=== PATIENT | male | born 1975 | race Two or more races ===

== ENCOUNTER 2017-11-20 10:29 | Inpatient (IN) | payer OTHER ==
[2017-11-16 12:31] VITALS: BMI 39.3
[2017-11-20] MEDS ORDERED: BUPIVACAINE HCL/PF 0.5% (5MG/ML) 10 ML VIAL ONE (11:06)
[2017-11-20] MEDS ORDERED: ROPIVACAINE HCL 0.5% 30ML VIAL ONE (12:08)
[2017-11-20] MEDS ORDERED: MIDAZOLAM HCL 2 MG/2 ML SINGLE DOSE VIAL ONE ×2 (12:09)
--- NOTE | 2017-11-20 12:17 | HP ---
Admitting History and Physical - Admission Chief Complaint: Morbid Obesity History Source: Patient Limitations to Obtaining History: No Limitations - Past Medical History Pulmonary: Yes: Sleep Apnea Gastrointestinal: Yes: Other (Morbid obesity) - Past Surgical History Additional Past Surgical History: Right knee surgery - Smoking History Smoking history: Never smoked Have you smoked in the past 12 months: No - Alcohol/Substance Use Hx Alcohol Use: Yes (rare) Home Medications - Allergies Allergies/Adverse Reactions: Allergies Allergy/AdvReac Type Severity Reaction Status Date / Time No Known Allergies Allergy Verified 11/20/17 11:07 - Home Medications Home Medications: Ambulatory Orders Ibuprofen 600 mg PO PRN PRN 11/16/17 Famotidine [Pepcid] 20 mg PO BID #60 tablet 11/20/17 Oxycodone HCl/Acetaminophen [Percocet 5-325 mg Tablet] 1 - 2 tab PO Q6H #28 tab MDD 4 11/20/17 Family Disease History - Family Disease History Family History: Unremarkable Review of Systems - Review of Systems Constitutional: denies: Chills, Fever Neck: reports: No Symptoms Cardiovascular: reports: No Symptoms Gastrointestinal: reports: No Symptoms Neurological: reports: No Symptoms Pain Intensity: 0 Physical Examination Vital Signs: Vital Signs Temperature 98.5 F 11/20/17 11:08 Pulse Rate 91 H 11/20/17 11:08 Respiratory Rate 18 11/20/17 11:08 Blood Pressure 124/73 11/20/17 11:08 O2 Sat by Pulse Oximetry (%) 94 L 11/20/17 11:11 Constitutional: Yes: Calm HENT: Yes: WNL Neck: Yes: WNL Cardiovascular: Yes: WNL Respiratory: Yes: WNL Gastrointestinal: Yes: Soft, Abdomen, Obese Neurological: Yes: Alert, Oriented Problem List - Problems (1) Morbid obesity due to excess calories Code(s): E66.01 - MORBID (SEVERE) OBESITY DUE TO EXCESS CALORIES (2) Sleep apnea Code(s): G47.30 - SLEEP APNEA, UNSPECIFIED Qualifiers: Sleep apnea type: unspecified type Qualified Code(s): G47.30 - Sleep apnea , unspecified (3) BMI 39.0-39.9,adult Code(s): Z68.39 - BODY MASS INDEX (BMI) 39.0-39.9, ADULT Assessment/Plan Laparoscopic possible open vertical sleeve gastrectomy, possible liver biopsy, EGD
[2017-11-20] MEDS ORDERED: ROCURONIUM BROMIDE 50 MG/5 ML VIAL ONE ×2 (12:41)
[2017-11-20] MEDS ORDERED: ceFAZolin SODIUM 1 GM VIAL ONE (12:41)
[2017-11-20] MEDS ORDERED: fentaNYL CITRATE 250 MCG/5 ML VIAL ONE (12:41)
[2017-11-20] MEDS ORDERED: PROPOFOL 20 ML ONE ×2 (12:41)
[2017-11-20] MEDS ORDERED: ceFAZolin SODIUM 1 GM VIAL IVPB ONE (12:59)
[2017-11-20] MEDS ORDERED: DEXAMETHASONE SOD PHOSPHATE 4 MG/1 ML VIAL ONE (13:15)
[2017-11-20] MEDS ORDERED: NEOSTIGMINE METHYLSULFATE 0.5 MG/ML - 10 ML MDV ONE (13:15)
[2017-11-20] MEDS ORDERED: GLYCOPYRROLATE 0.2 MG/1 ML VIAL ONE (13:15)
[2017-11-20] MEDS ORDERED: ePHEDrine SULFATE 50 MG/1 ML AMPULE ONE (13:31)
[2017-11-20] MEDS ORDERED: BUPIVACAINE HCL/PF 0.5% (5MG/ML) 10 ML VIAL IJ ONE (14:12)
--- NOTE | 2017-11-20 14:24 | OP ---
Operative Note - Note: Operative Date: 11/20/17 Pre-Operative Diagnosis: Morbid obesity. Sleep apnea Operation: Laparoscopic vertical sleeve gastrectomy, EGD Post-Operative Diagnosis: Same as Pre-op Surgeon: Beltran Browne Lever Operator: Kate Ramirez Anesthesia: General Specimens Removed: Greater curvature of stomach Estimated Blood Loss (mls): 30 Drains & Tubes with Location: 36 Fr bougie Operative Report Dictated: Yes
[2017-11-20] MEDS ORDERED: ONDANSETRON 4 MG/2 ML VIAL IVPUSH PRN (14:48)
[2017-11-20] MEDS ORDERED: IBUPROFEN 800 MG/8 ML IJ IVPB PRN (14:49)
[2017-11-20] MEDS ORDERED: IBUPROFEN 800 MG/8 ML IJ IVPB ONE (14:56)
[2017-11-20] MEDS ORDERED: LACTATED RINGERS SOLUTION 1,000 ML IV SCH (15:00)
--- NOTE | 2017-11-20 15:08 | SPEC ---
DATE OF OPERATION: 11/20/2017 SURGEON: Beltran Browne MD ICICLE MACHINE OPERATOR: YONIS Winchester PREOPERATIVE DIAGNOSES: 1. Morbid obesity. 2. Sleep apnea. 3. A body mass index of 39.3. POSTOPERATIVE DIAGNOSES: 1. Morbid obesity. 2. Sleep apnea. 3. A body mass index of 39.3. PROCEDURE: 1. Laparoscopic vertical sleeve gastrectomy. 2. Upper endoscopy/esophagogastroduodenoscopy. SPECIMEN: Greater curvature of the stomach. ESTIMATED BLOOD LOSS: 30 mL DRAINS: None. ANESTHESIA: GET. BOUGIE: Size 36-Armenian. REASON FOR PROCEDURE: This is a 42-year-old gentleman who presented for weight loss options. After describing different options, he decided to proceed with a laparoscopic, possible open vertical sleeve gastrectomy. RISKS AND BENEFITS: After describing the different options for weight loss management, the patient decided to proceed with a laparoscopic, possible open vertical sleeve gastrectomy. The patient was seen by the respective subspecialties and cleared for surgery. The risks and benefits of the procedure were explained. These included bleeding, infection, hernia, OH, DVT, PE, injury to surrounding structures including the liver, colon, bowel, spleen, esophagus, vessel injury, nerve injury, weight regain, gastric leak, staple line leak, sleeve leak, obstruction, vitamin deficiency, hair loss, and as some of the possible complications. The patient understood and signed informed consent. DESCRIPTION OF PROCEDURE: The patient was placed supine on the operating room table. The patient underwent general endotracheal intubation. A Fink catheter was inserted. The arms were brought out at 90 degrees and secured. A foot board was placed, and the legs were secured laterally with padding. The abdomen was prepped and draped in the usual sterile fashion. A timeout was performed. An incision was made in the left upper quadrant, and a Veress needle inserted. Pneumoperitoneum was established. Subsequently, the Veress needle was removed, and a 12-mm trocar was placed. The laparoscopic camera was inserted, and inspection of the abdominal cavity was performed. An incision was made in the supraumbilical region, and a 15-mm trocar placed under direct visualization. A 5-mm trocar was then placed in the right upper quadrant, and a 5-mm trocar placed below the left subcostal margin. A stab wound was made in the subxiphoid area, and a Jaylin clamp inserted and removed to dilate the tract. A Kristofer liver retractor was inserted. The post was secured at the bedside by the nursing staff. The patient was placed in steep reverse Trendelenburg position. The Kristofer liver retractor was used to secure the liver towards the anterior abdominal wall. The pylorus was identified and 6 cm proximal to it, the lesser sac was entered using the Ligasure device. All lateral attachments to the greater curvature of the stomach including the short gastric vessels were ligated using the Ligasure device toward the gastrosplenic and gastrophrenic ligaments. Once this was done in its entirety, it was confirmed that all tubes within the nasal or oropharyngeal cavity including a temperature probe was removed by Anesthesia. The bougie was then inserted by Anesthesia. Transection of the stomach was then begun staying adjacent to the bougie but away from the angularis. Transection of the stomach was performed near the portion of the stomach where the lesser sac was entered. Two laparoscopic Endo-JERRELL black loads were used at this location. Laparoscopic Endo-JERRELL purple loads were then used for the remainder of the transection until the greater curvature of the stomach was fully transected. This was done staying close to the bougie. Care was taken to stay away from the angle of His cephalad. The staple line was then inspected. Hemostasis was identified. A leak test was then performed. The stomach was clamped distally to the staple line. Irrigation solution was placed in the left upper quadrant, and air insufflated by Anesthesia into the sleeve. No leaks were identified, and no obstruction was identified. This was done throughout the entirety of the staple line. At this point, the irrigation solution was suctioned, and again hemostasis noted. The 15-mm supraumbilical trocar was then removed, and the specimen removed from the site using a sponge stick guido. The specimen was inspected, and a Veress needle inserted. The specimen insufflated adequately, and no leak was identified. The staple line was noted to be intact. A Jason Sudarshan device was then used to temporarily close the fascia with a 0 Vicryl suture at this site. The 15-mm trocar was then reinserted, and the 12-mm trocar in the left upper quadrant removed. The fascia at this site was then closed using a Jason Sudarshan device with a 0 Vicryl suture. Again, hemostasis was noted. The Kristofer liver retractor was then removed under direct visualization. Pneumoperitoneum was desufflated, and the fascial sutures were secured. Hemostasis was noted at all incision sites, and Marcaine was injected at all incision sites. All incision sites were closed using 4-0 Biosyn. Sterile dressings were applied. The patient tolerated the procedure well, and was transferred to the recovery room in stable condition with the Fink catheter intact. The patient was transferred to telemetry for further monitoring. In addition, upper endoscopy was performed at the end. The endoscope was placed into the patient's mouth, esophagus, gastric pouch, and the staple line. The staple line was inspected. Hemostasis was noted, and there was no leak or obstruction noted. The endoscope was used to suction the stomach and removed from the patient's mouth. Patient tolerated the procedure well and transferred to recovery room in stable condition. Darius HERNANDEZ/[id number]
[2017-11-20 15:14] LABS: HEMATOCRIT 38.8 % (35.4-49); HEMOGLOBIN 13.3 GM/dL (11.7-16.9); MCHC 34.2 g/dl (32.0-35.9); MEAN CELL VOLUME 87.8 fl (80-96); MEAN PLT VOLUME 9.9 fl (7.5-11.1); PLATELET COUNT 236 K/MM3 (134-434); RBC 4.41 M/mm3 (4.00-5.60); RDW 13.4 % (11.9-15.9); WHITE BLOOD COUNT 19.6 K/mm3 (4.0-10.0)
[2017-11-20] MEDS: METOCLOPRAMIDE HCL INJECTION 10 MG/2 ML VIAL IVPUSH SCH ×2 (15:15→21:23)
[2017-11-20] MEDS: ACETAMINOPHEN 1000 MG/100 ML VIAL (NON FORMULARY) IVPB SCH ×2 (15:15→21:44)
[2017-11-20] MEDS: ONDANSETRON 4 MG/2 ML VIAL IVPUSH SCH ×3 (15:30→21:44)
[2017-11-20 15:35] LABS: ALBUMIN 3.5 g/dl (3.4-5.0); ALK PHOS 57 U/L (45-117); ANION GAP 6 (8-16); BILIRUBIN,TOTAL 0.3 mg/dL (0.2-1.0); BLOOD UREA NITROGEN 13 mg/dL (7-18); CALCIUM 8.2 mg/dL (8.5-10.1); CHLORIDE 108 mmol/L (98-107); CO2 27 mmol/L (21-32); GLUCOSE,RANDOM 128 mg/dL (74-106); POTASSIUM 3.8 mmol/L (3.5-5.1); SGOT/AST 60 U/L (15-37); SGPT/ALT 91 U/L (12-78); SODIUM 141 mmol/L (136-145); TOT PROT 7.5 g/dl (6.4-8.2)
[2017-11-20] MEDS: morphine SULFATE 4 MG/ML VIAL IVPUSH PRN ×2 (17:52→21:45)
[2017-11-20] MEDS: SODIUM CHLORIDE 1,000 ML IV SCH (17:53)
--- NOTE | 2017-11-20 19:24 | SURG ---
Surgery Tire And L[employer] Technician Note Tire And Lube Technician: Kate Ramirez PA-C Date of Service: 11/20/17 Diagnosis: morbid obesity, sleep apnea Procedure: Laparoscopic vertical sleeve gastrectomy, EGD I was present for the entirety of the operative procedure. For further detail, please refer to operative report. Visit type - Case Type Case Type: Scheduled Admission - Emergency Emergency Visit: No - New patient This patient is new to me today: Yes Date on this admission: 11/20/17
[2017-11-20] MEDS: ENOXAPARIN NA (PORCINE) 40 MG/0.4 ML DISP.SYRIN SQ SCH (21:23)
[2017-11-20] MEDS: FAMOTIDINE 20 MG/50 ML IVPB 20 MG/50 ML MG IVPB SCH (21:23)
[2017-11-21] MEDS: morphine SULFATE 4 MG/ML VIAL IVPUSH PRN ×2 (01:44→07:03)
[2017-11-21] MEDS: ACETAMINOPHEN 1000 MG/100 ML VIAL (NON FORMULARY) IVPB SCH ×2 (03:22→10:13)
[2017-11-21] MEDS: METOCLOPRAMIDE HCL INJECTION 10 MG/2 ML VIAL IVPUSH SCH ×3 (03:25→15:48)
[2017-11-21] MEDS: ONDANSETRON 4 MG/2 ML VIAL IVPUSH SCH ×4 (03:25→15:47)
[2017-11-21 08:02] VITALS: PULSE 98
[2017-11-21 09:07] LABS: HEMATOCRIT 37.3 % (35.4-49); HEMOGLOBIN 12.7 GM/dL (11.7-16.9); MCH 29.9 pg (25.7-33.7); MEAN CELL VOLUME 87.9 fl (80-96); MEAN PLT VOLUME 10.4 fl (7.5-11.1); PLATELET COUNT 196 K/MM3 (134-434); RBC 4.24 M/mm3 (4.00-5.60); RDW 13.5 % (11.9-15.9); WHITE BLOOD COUNT 15.8 K/mm3 (4.0-10.0)
[2017-11-21 10:16] LABS: CHLORIDE 106 mmol/L (98-107); POTASSIUM 4.1 mmol/L (3.5-5.1); SODIUM 140 mmol/L (136-145)
[2017-11-21] MEDS: SODIUM CHLORIDE 1,000 ML IV SCH (10:25)
[2017-11-21 10:55] LABS: ALBUMIN 3.6 g/dl (3.4-5.0); ALK PHOS 54 U/L (45-117); ANION GAP 10 (8-16); BILIRUBIN,TOTAL 0.6 mg/dL (0.2-1.0); BLOOD UREA NITROGEN 12 mg/dL (7-18); CALCIUM 8.1 mg/dL (8.5-10.1); CO2 24 mmol/L (21-32); CREATININE 0.8 mg/dL (0.7-1.3); GLUCOSE,RANDOM 108 mg/dL (74-106); SGOT/AST 50 U/L (15-37); SGPT/ALT 83 U/L (12-78); TOT PROT 7.2 g/dl (6.4-8.2)
[2017-11-21] MEDS: ENOXAPARIN NA (PORCINE) 40 MG/0.4 ML DISP.SYRIN SQ SCH (11:24)
[2017-11-21] MEDS: FAMOTIDINE 20 MG/50 ML IVPB 20 MG/50 ML MG IVPB SCH (11:28)
[2017-11-21] MEDS ORDERED: oxyCODONE HCL 5 MG TABLET PO PRN (12:37)
--- NOTE | 2017-11-21 12:43 | PN ---
Progress Note (short form) - Note Progress Note: POD 1 Pain controlled No nausea Vital Signs Period Temp Pulse Resp BP Sys/Noland Pulse Ox Last 24 Hr 97.2 F-98.8 F 81-108 12-25 109-158/73-99 94-96 Abd soft CBC,CMP WBC 15.8 K/mm3 (4.0-10.0) H 11/21/17 06:30 RBC 4.24 M/mm3 (4.00-5.60) 11/21/17 06:30 Hgb 12.7 GM/dL (11.7-16.9) 11/21/17 06:30 Hct 37.3 % (35.4-49) 11/21/17 06:30 MCV 87.9 fl (80-96) 11/21/17 06:30 MCH 29.9 pg (25.7-33.7) 11/21/17 06:30 MCHC 34.0 g/dl (32.0-35.9) 11/21/17 06:30 RDW 13.5 % (11.9-15.9) 11/21/17 06:30 Plt Count 196 K/MM3 (134-434) 11/21/17 06:30 MPV 10.4 fl (7.5-11.1) 11/21/17 06:30 Sodium 140 mmol/L (136-145) 11/21/17 06:30 Potassium 4.1 mmol/L (3.5-5.1) 11/21/17 06:30 Chloride 106 mmol/L (98-107) 11/21/17 06:30 Carbon Dioxide 24 mmol/L (21-32) 11/21/17 06:30 Anion Gap 10 (8-16) 11/21/17 06:30 BUN 12 mg/dL (7-18) 11/21/17 06:30 Creatinine 0.8 mg/dL (0.7-1.3) 11/21/17 06:30 Creat Clearance w eGFR > 60 (>60) 11/21/17 06:30 Random Glucose 108 mg/dL (74-106) H 11/21/17 06:30 Calcium 8.1 mg/dL (8.5-10.1) L 11/21/17 06:30 Total Bilirubin 0.6 mg/dL (0.2-1.0) D 11/21/17 06:30 AST 50 U/L (15-37) H 11/21/17 06:30 ALT 83 U/L (12-78) H 11/21/17 06:30 Alkaline Phosphatase 54 U/L (45-117) 11/21/17 06:30 Total Protein 7.2 g/dl (6.4-8.2) 11/21/17 06:30 Albumin 3.6 g/dl (3.4-5.0) 11/21/17 06:30 UGI: no leak/obstruction Clears Discharge home Problem List - Problems (1) Morbid obesity due to excess calories Code(s): E66.01 - MORBID (SEVERE) OBESITY DUE TO EXCESS CALORIES (2) Sleep apnea Code(s): G47.30 - SLEEP APNEA, UNSPECIFIED Qualifiers: Sleep apnea type: unspecified type Qualified Code(s): G47.30 - Sleep apnea , unspecified (3) BMI 39.0-39.9,adult Code(s): Z68.39 - BODY MASS INDEX (BMI) 39.0-39.9, ADULT
[2017-11-21] MEDS ORDERED: SODIUM CHLORIDE 1,000 ML IV SCH (12:45)
[2017-11-21 14:42] VITALS: BP 137/77; TEMP 98
--- NOTE | 2017-11-22 15:43 | PATH ---
Surgical Pathology Report Patient Name: SANTIAGO ISAACS [facility]. Rec. #: [id number] /Age/Gender: 1975 (Age: 42) / M Account: [id number] Location: 4 W TELEMETRY U Taken: 11/20/2017 Received: 11/21/2017 Reported: 11/22/2017 Physicians: Beltran Browne M.D. Specimen(s) Received GREATER CURVATURE STOMACH Clinical History Morbid obesity Final Diagnosis GREATER CURVATURE STOMACH, LAPAROSCOPIC VERTICAL SLEEVE GASTRECTOMY: PORTION OF STOMACH WITH MILD CHRONIC GASTRITIS. IMMUNOSTAIN IS NEGATIVE FOR H. PYLORI ORGANISMS. Electronically Signed Carole Duffy M.D. Gross Description Received in formalin, labeled "greater curvature of stomach," is a 106 gram, 19.0 x 3.5 x 3.0 cm. portion of stomach with a stapled margin of resection. The serosa is godoy-little with minimal attached fat. The mucosa is godoy-pink with normal folds. No mucosal masses are identified. Field Crop Farmer sections are submitted in one cassette. /11/21/2017 [facility]/11/21/2017
== END 2017-11-21 17:23 | disposition home or self-care (01) | DRG 403 ==
LOC: JSAMEDAYSX 10:29 → EDSTATUS 14:00 → J4W 17:15
PROVIDERS: ADMIT Surgery; ATTEND Surgery
PROC: 0DB64Z3 Excision of Stomach, Percutaneous Endoscopic Approach, Vertical (ICD-10-PCS; principal; 2017-11-20 12:45)
PROC: 0DJ08ZZ Inspection of Upper Intestinal Tract, Via Natural or Artificial Opening Endoscopic (ICD-10-PCS; 2017-11-20 12:45)
DX: E66.01 Morbid (severe) obesity due to excess calories (principal); Z68.39 Body mass index [BMI] 39.0-39.9, adult; G47.30 Sleep apnea, unspecified
CPT/HCPCS: 36415; 74241-TC-FY; 80053; 85027; 86850; 86900; 86901; 88305-TC; 94010; 94760; J0131; J7030

== ENCOUNTER 2017-11-29 12:28 | Emergency (ER) | payer OTHER ==
[2017-11-29 12:40] VITALS: BP 124/62; PULSE 102; TEMP 98.2; BMI 36.6
[2017-11-29] MEDS ORDERED: ALBUTEROL SO4 2.5/IPRATROPIUM 0.5 INH SOL 3 ML VIAL.NEB. NEB ONE (13:13)
--- NOTE | 2017-11-29 13:20 | PDOC ---
History of Present Illness - General Chief Complaint: Cold Symptoms Stated Complaint: SOB Time Seen by Provider: 11/29/17 12:55 History Source: Patient Exam Limitations: No Limitations - History of Present Illness Initial Comments: 11/29/17 13:36 42-year-old male with history of seasonal allergies and asthma triggered by allergies presents to the ED with complaints of cough, mild nasal congestion, and difficulty breathing with exertion. Patient denies chest pain, fever, chills , sinus pressure, sore throat, decreased activity, or lower extremity edema. Timing/Duration: reports: other (4 days) Severity: reports: mild Possible Cause: Yes: occasional episodes Modifying Factors: improves with: coughing Associated Symptoms: reports: cough, shortness of breath. denies: chest pain/ soreness, dizziness, fever/chills, headache, lightheadedness, nasal drainage, sinus infection, wheezing Past History - Travel Traveled outside of the country in the last 30 days: No - Past Medical History Allergies/Adverse Reactions: Allergies Allergy/AdvReac Type Severity Reaction Status Date / Time No Known Allergies Allergy Verified 11/29/17 12:37 Home Medications: Ambulatory Orders NK [No Known Home Medication] 11/29/17 Anemia: No Asthma: Yes (SEASONAL) Cancer: No Cardiac Disorders: No CVA: No COPD: No CHF: No Dementia: No Diabetes: Yes (borderline) GI Disorders: No Disorders: No HTN: No Hypercholesterolemia: Yes (diet controlled) Liver Disease: No Seizures: No Thyroid Disease: No - Surgical History Abdominal Surgery: No Appendectomy: No Cardiac Surgery: No Cholecystectomy: No GI Surgery: Yes (Gastric sleeve) Lung Surgery: No Neurologic Surgery: No Orthopedic Surgery: No - Suicide/Smoking/Psychosocial Hx Smoking History: Never smoked Have you smoked in the past 12 months: No Information on smoking cessation initiated: No Hx Alcohol Use: No Drug/Substance Use Hx: No Substance Use Type: None Hx Substance Use Treatment: No Patient Lives Alone: No Lives with/in: spouse/SO Review of Systems - Review of Systems Able to Perform ROS?: No Constitutional: No: Symptoms Reported HEENTM: No: Symptoms Reported Respiratory: Yes: Cough, SOB with Exertion Cardiac (ROS): No: Symptoms Reported ABD/GI: No: Symptoms Reported : No: Symptoms Reported Musculoskeletal: No: Symptoms Reported Integumentary: No: Symptoms Reported Neurological: No: Symptoms reported *Physical Exam - Vital Signs Last Vital Signs Temp Pulse Resp BP Pulse Ox 98.2 F 102 H 24 124/62 97 11/29/17 12:37 11/29/17 12:37 11/29/17 12:37 11/29/17 12:37 11/29/17 12:37 - Physical Exam General Appearance: Yes: Nourished, Appropriately Dressed. No: Apparent Distress HEENT: positive: EOMI, ODILON, TMs Normal, Pharynx Normal. negative: Pale Conjunctivae Neck: positive: Normal Thyroid, Supple Respiratory/Chest: positive: Lungs Clear, Normal Breath Sounds. negative: Respiratory Distress, Accessory Muscle Use, Decreased Breath Sounds, Wheezing Cardiovascular: positive: Regular Rhythm, Tachycardia. negative: Murmur Gastrointestinal/Abdominal: positive: Soft. negative: Tenderness Integumentary: positive: Normal Color, Warm, Moist Neurologic: positive: Motor Strength 5/5 (ambulatory) Medical Decision Making - Medical Decision Making 11/29/17 13:00 Patient with complaints of shortness of breath on exertion and coughing for the past 4 days which began after the horticulture superintendent exterminated his apartment. Patient denies throat pain or fever. Patient exam had no acute findings. Based on patient's clinical presentation and history of present illness patient was ordered for 1 DuoNeb in the ER and will be discharged home with a three-day course of prednisone if noted improvement here in the ER with subjective complaints. Patient also be given a prescription for nebulizer with albuterol ampules. *DC/Admit/Observation/Transfer Diagnosis at time of Disposition: Reactive airway disease Qualifiers: Asthma severity: mild Asthma persistence: intermittent Asthma complication type : with acute exacerbation Qualified Code(s): J45.21 - Mild intermittent asthma with (acute) exacerbation - Discharge Dispostion Disposition: HOME Condition at time of disposition: Improved - Referrals - Patient Instructions Printed Discharge Instructions: DI for Reactive Airway Disease-Adult Additional Instructions: At this time I recommend taking prednisone for the next 3 days and use nebulizer as needed. Avoid triggers that worsen your symptoms. - Post Discharge Activity
== END 2017-11-29 13:52 | disposition home or self-care (01) ==
LOC: JERFT 12:28
PROC: 3E0F7GC Introduction of Other Therapeutic Substance into Respiratory Tract, Via Natural or Artificial Opening (ICD-10-PCS; principal; 2017-11-29)
DX: J45.21 Mild intermittent asthma with (acute) exacerbation (principal); E78.00 Pure hypercholesterolemia, unspecified; E11.9 Type 2 diabetes mellitus without complications
CPT/HCPCS: 99281-25; J7620

== ENCOUNTER 2017-12-19 18:53 | Emergency (ER) | payer OTHER ==
--- NOTE | 2017-12-19 18:57 | PDOC ---
Rapid Medical Evaluation Time Seen by Provider: 12/19/17 18:55 Medical Evaluation: Allergies Allergy/AdvReac Type Severity Reaction Status Date / Time No Known Allergies Allergy Verified 12/19/17 18:55 I have performed a brief in-person evaluation of this patient. The patient presents with a chief complaint of: asthma x 2 weeks. has been taking prednisone and albuterol pump; felt better and then SOB came back, as well as dry cough Pertinent physical exam findings: Patient appears well. No cough. Lungs CTAB I have ordered the following: nothing The patient will proceed to the ED for further evaluation. Discharge Disposition - Diagnosis Asthma - Referrals - Patient Instructions - Post Discharge Activity
[2017-12-19 18:59] VITALS: BMI 34.5
--- NOTE | 2017-12-19 19:57 | PDOC ---
History of Present Illness - History of Present Illness Initial Comments: 12/19/17 20:12 "The patient is a 42 year old male, with a significant past medical history of asthma, who presents to the emergency department with, 3 weeks of intermittent shortness of breath. He states he has seasonal allergies that exacerbate his asthma. The shortness of breath is often alleviated when he goes indoors and with the use of an air purifier. Pt has visited the ED twice in the past 3 weeks for asthma and was given nebulizers and prednisone, which alleviate his symptoms temporarily. Pt states that he had an attack this morning, but states that his symptoms abated on the way to the ER. He now denies any complaints. Denies SOB. Denies CP. The patient has an appointment with his formula maker in 2 days. He denies any recent fevers, chills, headache or dizziness. He denies any recent nausea, vomit, diarrhea or constipation. He denies any recent chest pain. He denies any recent dysuria, frequency, urgency or hematuria. Allergies: NKA Past surgical history: None reported. Social History: Nonsmoker. Denies EtOH use and recreational drug use. Primary Care Physician: Dr. Chaidez " <Rk Dorsey - Last Filed: 12/19/17 21:02> <Kaye Love - Last Filed: 12/19/17 22:11> - General Chief Complaint: Shortness of Breath Stated Complaint: ASTHMA Time Seen by Provider: 12/19/17 18:55 Past History - Past Medical History Anemia: No Asthma: Yes (SEASONAL) Cancer: No Cardiac Disorders: No CVA: No COPD: No CHF: No DVT: No Dementia: No Diabetes: No GI Disorders: No Disorders: No HTN: No Hypercholesterolemia: No Liver Disease: No Seizures: No Thyroid Disease: No - Surgical History Abdominal Surgery: No Appendectomy: No Cardiac Surgery: No Cholecystectomy: No GI Surgery: Yes (Gastric sleeve) Lung Surgery: No Neurologic Surgery: No Orthopedic Surgery: No - Suicide/Smoking/Psychosocial Hx Smoking History: Never smoked Have you smoked in the past 12 months: No Information on smoking cessation initiated: No Hx Alcohol Use: No Drug/Substance Use Hx: No Substance Use Type: None Hx Substance Use Treatment: No <Rk Dorsey - Last Filed: 12/19/17 21:02> <Ernie Loveniha - Last Filed: 12/19/17 22:11> - Past Medical History Allergies/Adverse Reactions: Allergies Allergy/AdvReac Type Severity Reaction Status Date / Time No Known Allergies Allergy Verified 12/19/17 18:55 Home Medications: Ambulatory Orders Albuterol 0.083% Nebulizer Beata [Ventolin 0.083% Nebulizer Soln -] 1 neb NEB Q6H PRN #1 box 11/29/17 Nebulizer [Aeroeclipse II] 1 each PRN #1 each 11/29/17 predniSONE [Deltasone -] 40 mg PO DAILY #6 tablet 11/29/17 Albuterol 0.083% Nebulizer Beata [Ventolin 0.083% Nebulizer Soln -] 1 neb NEB Q4H #30 vial 12/19/17 Review of Systems - Review of Systems Comments:: 12/19/17 19:57 "GENERAL/CONSTITUTIONAL: No fever or chills. No weakness. HEAD, EYES, EARS, NOSE AND THROAT: No change in vision. No ear pain or discharge. No sore throat. CARDIOVASCULAR: No chest pain or shortness of breath. RESPIRATORY: No cough, wheezing, or hemoptysis. GASTROINTESTINAL: No nausea, vomiting, diarrhea or constipation. GENITOURINARY: No dysuria, frequency, or change in urination. MUSCULOSKELETAL: No joint or muscle swelling or pain. No neck or back pain. SKIN: No rash NEUROLOGIC: No headache, vertigo, loss of consciousness, or change in strength/ sensation. ENDOCRINE: No increased thirst. No abnormal weight change. HEMATOLOGIC/LYMPHATIC: No anemia, easy bleeding, or history of blood clots. ALLERGIC/IMMUNOLOGIC: No hives or skin allergy. " <Rk Dorsey - Last Filed: 12/19/17 21:02> *Physical Exam - Vital Signs Last Vital Signs Temp Pulse Resp BP Pulse Ox 98.4 F 84 18 131/80 100 12/19/17 18:55 12/19/17 18:55 12/19/17 18:55 12/19/17 18:55 12/19/17 18:55 - Physical Exam Comments: 12/19/17 19:57 "GENERAL: Awake, alert, and fully oriented, in no acute distress. HEAD: No signs of trauma EYES: PERRLA, EOMI, sclera anicteric, conjunctiva clear ENT: Auricles normal inspection, hearing grossly normal, nares patent, oropharynx clear without exudates. Moist mucosa NECK: Nontender, no stepoffs, Normal ROM, supple, no lymphadenopathy, JVD, or masses LUNGS: Breath sounds equal, clear to auscultation bilaterally. No wheezes, and no crackles HEART: Regular rate and rhythm, normal S1 and S2, no murmurs, rubs or gallops ABDOMEN: Soft, nontender, normoactive bowel sounds. No guarding, no rebound. No masses EXTREMITIES: Normal range of motion, no edema. No clubbing or cyanosis. No cords, erythema, or tenderness NEUROLOGICAL: Cranial nerves II through XII intact. 5/5 strength and sensation in all extremities, Normal speech, normal gait, normal cerebellar function SKIN: Warm, Dry, normal turgor, no rashes or lesions noted. " <Rk Dorsey - Last Filed: 12/19/17 21:02> - Vital Signs Last Vital Signs Temp Pulse Resp BP Pulse Ox 98.3 F 82 18 130/80 100 12/19/17 21:13 12/19/17 21:13 12/19/17 21:13 12/19/17 21:13 12/19/17 21:13 <Kaye Love - Last Filed: 12/19/17 22:11> ED Treatment Course - RADIOLOGY Radiology Studies Ordered: Category Date Time Status CHEST PA & LAT [RAD] Stat Radiology 12/19/17 19:42 Ordered <Rk Dorsey - Last Filed: 12/19/17 21:02> Medical Decision Making - Medical Decision Making 12/19/17 19:53 42 M with intermittent asthma exacerbations x 2 weeks, likely related to pt's seasonal allergies. Pt reports no complaints at this time. Vitals and exam completely normal. No indication for nebulizers or steroids at this time. - F/u pulm 12/19/17 21:02 CXR clear Pt is well appearing, with normal vitals. Clinically stable for DC at this time. I discussed the physical exam findings, ancillary test results and final diagnoses with the patient. I answered all of the patient's questions. The patient was satisfied with the care received and felt comfortable with the discharge plan and treatment plan. The patient agrees to follow up with the primary care physician within 24-72 hours. <Rk Dorsey - Last Filed: 12/19/17 21:02> *DC/Admit/Observation/Transfer - Attestations Physician Attestion: 12/19/17 21:03 I, Dr. Rk Dorsey MD, attest that this document has been prepared under my direction and personally reviewed by me in its entirety. I further attest, that it accurately reflects all work, treatment, procedures and medical decision -making performed by me. <Rk Dorsey - Last Filed: 12/19/17 21:02> - Attestations Scribe Attestion: 12/19/17 22:11 Documentation prepared by Kaye Love, acting as medical language specialist for Rk Dorsey MD. <Kaye Love - Last Filed: 12/19/17 22:11> Diagnosis at time of Disposition: Asthma - Discharge Dispostion Disposition: HOME - Prescriptions Prescriptions: Albuterol 0.083% Nebulizer Beata [Ventolin 0.083% Nebulizer Soln -] 1 neb NEB Q4H #30 vial - Referrals Referrals: Rafita Morales MD [Primary Care Provider] - - Patient Instructions Printed Discharge Instructions: Asthma -- Adult Additional Instructions: Use your albuterol nebulizer as needed for coughing and wheezing. Follow up with your formula maker this Sunday as scheduled. If you experience worsening shortness of breath, chest pain, fevers, or any other concerning symptoms, return to the ER immediately. - Post Discharge Activity
[2017-12-19 21:15] VITALS: BP 130/80; PULSE 82; TEMP 98.3
== END 2017-12-19 21:15 | disposition home or self-care (01) ==
LOC: JER 18:53
DX: J45.909 Unspecified asthma, uncomplicated (principal); Z98.84 Bariatric surgery status
CPT/HCPCS: 71046-TC-FY; 99281-25

== ENCOUNTER 2019-06-19 06:00 | Emergency (ER) | payer OTHER ==
[2019-06-19 06:38] VITALS: BP 124/71; PULSE 74; TEMP 98.4; BMI 24.4
[2019-06-19] MEDS ORDERED: KETOROLAC TROMETHAMINE 30 MG/1 ML VIAL IM ONE (07:21)
[2019-06-19] MEDS ORDERED: METHOCARBAMOL 500 MG TABLET PO ONE (07:21)
[2019-06-19] MEDS ORDERED: METHOCARBAMOL 500 MG TABLET ONE (07:23)
[2019-06-19] MEDS ORDERED: KETOROLAC TROMETHAMINE 30 MG/1 ML VIAL ONE (07:23)
--- NOTE | 2019-06-19 07:35 | PDOC ---
History of Present Illness - General History Source: Patient Exam Limitations: Clinical Condition - History of Present Illness Initial Comments: 06/19/19 07:36 Patient with past medical history of herniated back days and chronic back pain presented with complaint of 2-day history of low back pain which is worse from getting up from sitting position or laying position. Patient report taking Motrin for pain with minimal improvement. Denies numbness or tingling sensation. Denies radiculopathy, urinary or fecal incontinence. Denies saddle paresthesia. Denies any other symptoms Occurred: reports: other (over a year) Severity: reports: mild Pain Location: reports: back Method of Injury: Yes: other (strain) Loss of Consciousness: no loss of consciousness <Igor Renteria - Last Filed: 06/19/19 07:36> <Gary Pereira - Last Filed: 06/21/19 08:30> - General Chief Complaint: Back Pain Stated Complaint: BACK PAIN Time Seen by Provider: 06/19/19 07:15 Past History - Past Medical History Anemia: No Asthma: Yes (SEASONAL) Cancer: No Cardiac Disorders: No CVA: No COPD: No CHF: No DVT: No Dementia: No Diabetes: No GI Disorders: No Disorders: No HTN: No Hypercholesterolemia: No Liver Disease: No Seizures: No Thyroid Disease: No - Surgical History Abdominal Surgery: No Appendectomy: No Cardiac Surgery: No Cholecystectomy: No GI Surgery: Yes (Gastric sleeve) Lung Surgery: No Neurologic Surgery: No Orthopedic Surgery: No - Psycho Social/Smoking Cessation Hx Smoking History: Never smoked Have you smoked in the past 12 months: No Hx Alcohol Use: No Drug/Substance Use Hx: No Substance Use Type: None Hx Substance Use Treatment: No <Igor Renteria - Last Filed: 06/19/19 07:36> <Gary Pereira - Last Filed: 06/21/19 08:30> - Past Medical History Allergies/Adverse Reactions: Allergies Allergy/AdvReac Type Severity Reaction Status Date / Time No Known Allergies Allergy Verified 06/19/19 06:35 Home Medications: Ambulatory Orders Albuterol 0.083% Nebulizer Beata [Ventolin 0.083% Nebulizer Soln -] 1 neb NEB Q6H PRN #1 box 11/29/17 Nebulizer [Aeroeclipse II] 1 [facility] PRN #1 each 11/29/17 predniSONE [Deltasone -] 40 mg PO DAILY #6 tablet 11/29/17 Albuterol 0.083% Nebulizer Beata [Ventolin 0.083% Nebulizer Soln -] 1 neb NEB Q4H #30 vial 12/19/17 Lidocaine 5% Patch [Lidoderm -] 1 patch TP DAILY #7 patch 06/19/19 Methocarbamol [Robaxin -] 500 mg PO BID PRN #20 tablet 06/19/19 Methylprednisolone [Medrol Dose Jose] 4 mg PO ASDIR #21 tablet 06/19/19 Review of Systems - Review of Systems Able to Perform ROS?: Yes Is the patient limited Afghan proficient: No Constitutional: No: Chills, Fever, Malaise HEENTM: No: Symptoms Reported, See HPI, Eye Pain, Blurred Vision, Tearing, Recent change in vision, Double Vision, Cataracts, Ear Pain, Ocular Prothesis, Ear Discharge, Nose Pain, Nose Congestion, Tinnitus, Nose Bleeding, Hearing Loss , Throat Pain, Throat Swelling, Mouth Pain, Dental Problems, Difficulty Swallowing, Mouth Swelling, Other Respiratory: No: Symptoms reported, See HPI, Cough, Orthopnea, Shortness of Breath, SOB with Exertion, SOB at Rest, Stridor, Wheezing, Productive cough, Hemoptysis, Other Cardiac (ROS): No: Symptoms Reported, See HPI, Chest Pain, Edema, Irregular Heart Rate, Lightheadedness, Palpitations, Syncope, Chest Tightness, Other ABD/GI: No: Symptoms Reported, Nausea, Vomiting Musculoskeletal: Yes: Symptoms Reported, See HPI, Back Pain, Muscle Pain Integumentary: No: Symptoms Reported Neurological: No: Symptoms reported, Numbness, Paresthesia, Tingling All Other Systems: Reviewed and Negative <Igor Renteria - Last Filed: 06/19/19 07:36> *Physical Exam - Vital Signs Last Vital Signs Temp Pulse Resp BP Pulse Ox 98.4 F 74 16 124/71 99 06/19/19 06:37 06/19/19 06:37 06/19/19 06:37 06/19/19 06:37 06/19/19 06:37 - Physical Exam 06/19/19 07:39 GENERAL: Well developed, well nourished. Awake and alert in mild acute distress. PULMONARY: No evidence of respiratory distress. . ABDOMINAL: Soft. Non-tender. Non-distended. No rebound or guarding. No organomegaly. Normoactive bowel sounds MUSCULOSKELETAL : mild tenderness over posterior paravertebral muscle of lumbaosacral spine of L4-S2 on bilateral sides with mild midline tenderness. No bony deformities . no CVAT b/l SKIN: Warm and dry. Normal capillary refill. No rashes. NEUROLOGICAL: Alert, awake, appropriate. No motor deficits in the lower extremities. Gait is normal without ataxia. PSYCHIATRIC: Cooperative. Good eye contact. Appropriate mood and affect. General Appearance: Yes: Nourished, Appropriately Dressed. No: Apparent Distress <Igor Renteria - Last Filed: 06/19/19 07:36> - Vital Signs Last Vital Signs Temp Pulse Resp BP Pulse Ox 98.4 F 74 16 124/71 99 06/19/19 06:37 06/19/19 06:37 06/19/19 06:37 06/19/19 06:37 06/19/19 06:37 <Gary Pereira - Last Filed: 06/21/19 08:30> ED Treatment Course - Medications Given in the ED: ED Medications Discontinued Medications Generic Name Dose Route Start Last Admin Trade Name Freq PRN Reason Stop Dose Admin Ketorolac Tromethamine 30 mg 06/19/19 07:21 06/19/19 07:47 Toradol Injection - IM 06/19/19 07:22 30 mg ONCE ONE Administration Methocarbamol 500 mg 06/19/19 07:21 06/19/19 07:47 Robaxin - PO 06/19/19 07:22 500 mg ONCE ONE Administration <Gary Pereira - Last Filed: 06/21/19 08:30> Medical Decision Making - Medical Decision Making 06/19/19 07:37 Patient with past medical history of herniated back days and chronic back pain presented with complaint of 2-day history of low back pain which is worse from getting up from sitting position or laying position. Patient report taking Motrin for pain with minimal improvement. Denies numbness or tingling sensation. Denies radiculopathy, urinary or fecal incontinence. Denies saddle paresthesia. Denies any other symptoms Exam significant for mild tenderness to lower lumbosacral spine of L4-S2 with mild midline tenderness which is worse with external rotation of the hip to bilateral side. Negative straight leg test. Patient symptoms likely back spasm from chronic back pain. Toradol 30 mg IM given for pain and Robaxin 500 mg p.o. ordered for spasm. Patient stable for discharge on Medrol Jose for anti-inflammatory effect and Robaxin for spasm with orthopedic spine follow-up <DexterIgor - Last Filed: 06/19/19 07:36> - Medical Decision Making 06/21/19 08:30 The patient was seen and evaluated in conjunction with YONIS Renteria under my direct supervision, ancillary studies were reviewed. I agree with the plan as outlined by YONIS Renteria. <Gary Pereira - Last Filed: 06/21/19 08:30> Discharge - Discharge Information Problems reviewed: Yes - Admission No <Dexter,Igor Hilliard - Last Filed: 06/19/19 07:36> <Gary Pereira - Last Filed: 06/21/19 08:30> - Discharge Information Clinical Impression/Diagnosis: Lumbago without sciatica Qualifiers: Chronicity: chronic Back pain laterality: midline Qualified Code(s): M54.5 - Low back pain Condition: Stable Disposition: HOME - Additional Discharge Information Prescriptions: Lidocaine 5% Patch [Lidoderm -] 1 patch TP DAILY #7 patch Methocarbamol [Robaxin -] 500 mg PO BID PRN #20 tablet PRN Reason: back spasm Methylprednisolone [Medrol Dose Jose] 4 mg PO ASDIR #21 tablet - Follow up/Referral Referrals: Rj Antoine MD, [facility] [Staff Physician] - - Patient Discharge Instructions Patient Printed Discharge Instructions: DI for Low Back Pain Additional Instructions: Take prescribed medications as needed for pain. Apply hot compress to back as needed for back pain. Follow-up with referred orthopedics home health specialist - Post Discharge Activity Work/Back to School Note: Back to Work
== END 2019-06-19 07:48 | disposition home or self-care (01) ==
LOC: JER 06:00
PROC: 3E0233Z Introduction of Anti-inflammatory into Muscle, Percutaneous Approach (ICD-10-PCS; principal; 2019-06-19)
DX: M54.5 Low back pain (principal); G89.29 Other chronic pain; J30.2 Other seasonal allergic rhinitis
CPT/HCPCS: 99282-25

== ENCOUNTER 2024-01-10 04:47 | Day surgery (SDC) | payer OTHER ==
[2024-01-04 14:24] VITALS: BMI 27.0
[2024-01-10 11:56] VITALS: TEMP 98.4
[2024-01-10 12:15] VITALS: BP 104/75; PULSE 66; RESP 15
== END 2024-01-10 12:17 | disposition home or self-care (01) ==
LOC: JASU-ENDO 04:47
PROVIDERS: ATTEND Internal Medicine Gastroenterology
PROC: 0DJD8ZZ Inspection of Lower Intestinal Tract, Via Natural or Artificial Opening Endoscopic (ICD-10-PCS; principal; 2024-01-10 10:00)
DX: Z12.11 Encounter for screening for malignant neoplasm of colon (principal)